=== PATIENT | male | born 1940 | race Caucasian/White ===

== ENCOUNTER 2017-10-04 10:09 | Outpatient (CLI) | payer OTHER | END 2017-10-04 11:00 | disposition home or self-care (01) | LOC: NUCLEAR 10:09 | DX: L97.312 Non-pressure chronic ulcer of right ankle with fat layer exposed (principal); I73.9 Peripheral vascular disease, unspecified ==

== ENCOUNTER 2017-10-04 11:24 | Outpatient (CLI) | payer OTHER | END 2017-10-04 15:07 | disposition home or self-care (01) | LOC: RAD 11:24 | DX: L97.312 Non-pressure chronic ulcer of right ankle with fat layer exposed (principal) ==